=== PATIENT | female | born 1980 | race Caucasian/White ===

== ENCOUNTER 2016-08-21 14:54 | Emergency (ER) | payer SELFPAY ==
[~2016-08-21] VITALS: Ht 170.2 cm; Wt 75.0 kg
[2016-08-21 16:21] LABS: BILIRUBIN,URINE Negative (Negative); CLARITY,URINE Clear; GLUCOSE, URINE (UA) Negative (Negative); LEUKOCYTE ESTERASE ,URINE Negative (Negative); PH,URINE 6.5 (5.0 - 8.0); UROBILINOGEN,URINE 0.2 mg/dL (0.2-1.0)
[2016-08-21 16:34] LABS: COLOR,URINE Light Yellow
[2016-08-21 16:58] LABS: BASOPHILS % (AUTO) 0 % (0-2); EOSINOPHILS # (AUTO) 0.2 10^3uL; EOSINOPHILS % (AUTO) 3 % (0-4); LYMPHOCYTES # (AUTO) 2.1 X10^3; MEAN CORPUSCULAR HGB CONC 34.8 g/dL (31.0-37.0); MEAN CORPUSCULAR VOLUME 91 FL (80-100); MEAN PLATELET VOLUME 10.5 FL (6.0-9.5); MONOCYTES # (AUTO) 0.8 X10^3; MONOCYTES % (AUTO) 11 % (3-11); NEUTROPHILS # (AUTO) 4.6 X10^3; NEUTROPHILS % (AUTO) 59 % (51-67); PLATELET COUNT 247 10^3uL (150-450); WHITE BLOOD COUNT 7.77 10^3uL (4.0-11.0)
[2016-08-21 16:59] LABS: MEAN CORPUSCULAR HEMOGLOBIN 31.6 PG (26.0-34.0)
[2016-08-21 17:09] LABS: ALBUMIN 4.7 g/dL (3.4-5.0); ANION GAP 15.4 MEQ/L (3-15); CALCULATED IONIZED CALCIUM 4.1 mg/dL (3.8-4.6)
[2016-08-21 17:52] VITALS: BP 134/76
== END 2016-08-21 17:45 | disposition home or self-care (01) ==
LOC: ED 14:58
DX: S39.012A Strain of muscle, fascia and tendon of lower back, initial encounter (principal); X58.XXXA Exposure to other specified factors, initial encounter; M54.5 Low back pain; R10.32 Left lower quadrant pain
CPT/HCPCS: 36415; 74176; 80053; 81003; 83690; 85025; 86140; 99282; 99283